=== PATIENT | female | born 1935 | race Caucasian/White ===

== ENCOUNTER 2019-01-29 09:22 | Observation (INO) | payer MEDICARE, BC ==
[2019-01-29] VITALS (23 sets, daily range): BP systolic 107–164; BP diastolic 40–95; PULSE 57–68; RESP 11–29; Ht 160 cm; Wt 73.6 kg
[~2019-01-29] VITALS: Ht 160 cm; Wt 73.6 kg
[~2019-01-29 09:22] MED LIST: APIX5TAB ORAL; ASPI-817 PO; ATOR40TA68 PO; B CO1CAP PO; CELE100C PO; CHOL200073 PO; CLOP75TA27 PO; CYAN100T35 PO; DOXY-214 PO; GABA400C14 PO; LISI-313 PO; METO-335 PO; METO25TA4 ORAL; NITR-58 PO; NITR0.3T6 SUBLINGUAL; OMEG1CAP90 PO; OMEP40CA38 PO
[2019-01-29] MEDS: SOD CHLORIDE 0.9% 1,000 ML IV SCH (11:04)
[2019-01-29] MEDS ORDERED: HEPARIN 1000 UNITS/ML 10 ML INJ ONE (11:28)
[2019-01-29] MEDS ORDERED: FENTAnyl 50 MCG/ML VIAL ONE (11:28)
[2019-01-29] MEDS ORDERED: VERAPAMIL 5 MG INJ ONE (11:28)
[2019-01-29] MEDS ORDERED: IODIXANOL LOCM 100 ML BTL ONE (11:28)
[2019-01-29] MEDS ORDERED: LIDOCAINE 1% (MDV) 20 ML INJ ONE (11:28)
[2019-01-29] MEDS ORDERED: MIDAZOLAM 1 MG/ML 2 ML INJ ONE ×2 (11:28→13:01)
[2019-01-29] MEDS ORDERED: SOD CHLORIDE 0.9% 500 ML ONE (12:35)
[2019-01-29] MEDS ORDERED: ASPIRIN 325 MG TAB ONE (12:35)
[2019-01-29] MEDS ORDERED: CLOPIDOGREL 300 MG TAB ONE (12:35)
[2019-01-29] MEDS ORDERED: NITROGLYCERIN (IC) 100 MCG/ML INJ ONE (12:35)
[2019-01-29] MEDS ORDERED: hydrALAzine 20 MG INJ ONE (12:40)
[2019-01-29] MEDS ORDERED: SOD CHLORIDE 0.9% 1,000 ML IV SCH (13:12)
[2019-01-29] MEDS ORDERED: ONDANSETRON 4 MG INJ IV PRN (13:30)
[2019-01-29] MEDS ORDERED: AL HYDROX/MG HYDROX/SIMETH 30 ML CUP PO PRN (13:30)
[2019-01-29] MEDS ORDERED: hydrALAzine 20 MG INJ IV PRN (13:30)
[2019-01-29] MEDS: ACETAMINOPHEN 325 MG TAB PO PRN (19:07)
[2019-01-29] MEDS: METOPROLOL 25 MG TAB PO SCH (21:33)
[2019-01-30] VITALS (18 sets, daily range): BP systolic 127–196; BP diastolic 49–126; PULSE 53–71; RESP 10–22
[2019-01-30] MEDS: SOD CHLORIDE 0.9% 1,000 ML IV SCH ×2 (00:20→03:41)
[2019-01-30] MEDS: METOPROLOL 25 MG TAB PO SCH (08:37)
[2019-01-30] MEDS ORDERED: ASPIRIN (EC) 81 MG TAB PO SCH (09:00)
[2019-01-30] MEDS ORDERED: CLOPIDOGREL 75 MG TAB PO SCH (09:00)
[2019-01-30] MEDS: ACETAMINOPHEN 325 MG TAB PO PRN (11:25)
[2019-01-30] MEDS ORDERED: HYDROCODONE/APAP (5/325) TAB PO ONE (13:00)
[2019-01-30] MEDS ORDERED: morphine 2 MG INJ IV STA (14:21)
[2019-01-30] MEDS ORDERED: AMIODARONE 200 MG TAB NGT SCH (17:00)
== END 2019-01-30 17:15 | disposition home or self-care (01) ==
LOC: CCL 09:22 → SDS 09:22 → CCL 13:11 → ICU 13:12
PROVIDERS: ADMIT Internal Medicine Cardiovascular Disease; ATTEND Internal Medicine Cardiovascular Disease
DX: I25.10 Atherosclerotic heart disease of native coronary artery without angina pectoris (principal); I72.1 Aneurysm of artery of upper extremity; I73.9 Peripheral vascular disease, unspecified; I48.0 Paroxysmal atrial fibrillation; I10 Essential (primary) hypertension; Z79.1 Long term (current) use of non-steroidal anti-inflammatories (NSAID); Z79.899 Other long term (current) drug therapy
CPT/HCPCS: 71045; 80048; 80053; 80061; 85025; 85610; 85730; 87081; 93005; 93458; 93923; 93931; C1725; C1874; C1887; C9600; G0378; J0360; J1644; J2250; J2270; J3010; J7030; J7040; Q9967; 99217

== ENCOUNTER 2019-02-01 11:54 | Inpatient (IN) | payer MEDICARE, BC ==
[~2019-02-01] VITALS: Ht 160 cm; Wt 72.3 kg
[~2019-02-01 11:54] MED LIST changes: -APIX5TAB ORAL; -B CO1CAP PO; -CELE100C PO; -CHOL200073 PO; -CYAN100T35 PO; -DOXY-214 PO; -GABA400C14 PO; -NITR-58 PO; -OMEG1CAP90 PO
[2019-02-01] MEDS ORDERED: ASPIRIN 325 MG TAB PO ONE (13:30)
[2019-02-01] MEDS ORDERED: ONDANSETRON 4 MG INJ IV PRN ×2 (16:30→17:00)
[2019-02-01] MEDS ORDERED: CLOPIDOGREL 75 MG TAB PO ONE (16:30)
[2019-02-01] MEDS ORDERED: ACETAMINOPHEN 325 MG TAB PO PRN ×2 (16:30→17:00)
[2019-02-01] MEDS ORDERED: NACL 0.9% 3 ML SYG IV SCH (17:00)
[2019-02-01] MEDS ORDERED: morphine 2 MG INJ IV PRN (17:00)
[2019-02-01 17:17] VITALS: BP 165/75; PULSE 55; RESP 18
[2019-02-01 18:50] VITALS: Ht 160 cm; Wt 72.3 kg
[2019-02-01] MEDS ORDERED: ATORVASTATIN 40 MG TAB PO SCH (21:00)
[2019-02-01] MEDS ORDERED: hydrALAzine 20 MG INJ IV PRN (21:00)
[2019-02-01] MEDS: METOPROLOL 25 MG TAB PO SCH (21:05)
[2019-02-01] MEDS: FAMOTIDINE 20 MG INJ IV SCH (21:06)
[2019-02-01 23:19] VITALS: BP 144/67; PULSE 51; RESP 18
[2019-02-02] VITALS (13 sets, daily range): BP systolic 140–189; BP diastolic 47–119; PULSE 58–80; RESP 16–26
[2019-02-02] MEDS: FAMOTIDINE 20 MG INJ IV SCH ×2 (08:11→21:00)
[2019-02-02] MEDS: CLOPIDOGREL 75 MG TAB PO SCH (08:11)
[2019-02-02] MEDS: ASPIRIN (EC) 81 MG TAB PO SCH (08:11)
[2019-02-02] MEDS: METOPROLOL 25 MG TAB PO SCH ×2 (08:17→21:08)
[2019-02-02] MEDS: ENOXAPARIN 30 MG/0.3 ML SYG SC SCH (08:27)
[2019-02-02] MEDS ORDERED: LIDOCAINE 1% (MDV) 20 ML INJ ONE (10:18)
[2019-02-02] MEDS ORDERED: MIDAZOLAM 1 MG/ML 2 ML INJ ONE (10:18)
[2019-02-02] MEDS ORDERED: FENTAnyl 50 MCG/ML VIAL ONE (10:18)
[2019-02-02] MEDS ORDERED: SOD CHLORIDE 0.9% 500 ML ONE (10:19)
[2019-02-02] MEDS ORDERED: NITROGLYCERIN (IC) 100 MCG/ML INJ ONE (11:34)
[2019-02-02] MEDS ORDERED: IOHEXOL 350MG/ML 50 ML BTL ONE (11:34)
[2019-02-02] MEDS ORDERED: IODIXANOL LOCM 100 ML BTL ONE (11:35)
[2019-02-02] MEDS ORDERED: SOD CHLORIDE 0.9% 1,000 ML IV SCH (11:45)
[2019-02-02] MEDS ORDERED: ZOLPIDEM 5 MG TAB PO PRN ×2 (13:00→15:30)
[2019-02-03] VITALS (13 sets, daily range): BP systolic 105–150; BP diastolic 41–93; PULSE 56–65; RESP 12–23
[2019-02-03] MEDS: ASPIRIN (EC) 81 MG TAB PO SCH (09:51)
[2019-02-03] MEDS: METOPROLOL 25 MG TAB PO SCH (09:52)
[2019-02-03] MEDS: CLOPIDOGREL 75 MG TAB PO SCH (09:52)
[2019-02-03] MEDS: ENOXAPARIN 30 MG/0.3 ML SYG SC SCH (09:56)
[2019-02-03] MEDS ORDERED: LISINOPRIL 5 MG TAB PO SCH (11:00)
[2019-02-03] MEDS: FAMOTIDINE 20 MG INJ IV SCH (12:17)
[2019-02-04] MEDS ORDERED: METOPROLOL (XL) 25 MG TAB PO SCH (09:00)
== END 2019-02-03 14:05 | disposition home or self-care (01) | DRG 247 ==
LOC: E/R 11:54 → TEL 16:08 → ICU 02-02 12:09
PROVIDERS: ADMIT Internal Medicine; ATTEND Internal Medicine
PROC: 027034Z Dilation of Coronary Artery, One Artery with Drug-eluting Intraluminal Device, Percutaneous Approach (ICD-10-PCS; principal; 2019-02-02)
PROC: 4A023N7 Measurement of Cardiac Sampling and Pressure, Left Heart, Percutaneous Approach (ICD-10-PCS; 2019-02-02)
PROC: B211YZZ Fluoroscopy of Multiple Coronary Arteries using Other Contrast (ICD-10-PCS; 2019-02-02)
DX: I25.110 Atherosclerotic heart disease of native coronary artery with unstable angina pectoris (principal); J44.9 Chronic obstructive pulmonary disease, unspecified; R13.10 Dysphagia, unspecified; I48.0 Paroxysmal atrial fibrillation; I73.9 Peripheral vascular disease, unspecified; E78.5 Hyperlipidemia, unspecified; I10 Essential (primary) hypertension; Z95.5 Presence of coronary angioplasty implant and graft
CPT/HCPCS: 36415; 71045; 80048; 80053; 80061; 82550; 82553; 83036; 83690; 84484; 85025; 85610; 85730; 87081; 93005; 93306; 93454; 93458; 93923; 93931; 99217; C1725; C1760; C1874; C1887; C1894; C9600; G0378; J0360; J1644; J1650; J2250; J2270; J3010; J7030; J7040; Q9967